=== PATIENT | female | born 1960 | race Caucasian/White ===

== ENCOUNTER → 2017-03-11 | Outpatient (CLI) | payer BC ==
--- NOTE | 2017-03-15 14:55 | MAMMOGRAPHY REPORT ---
THIS REPORT HAS BEEN AMENDED. BILATERAL DIGITAL SCREENING MAMMOGRAM TOMOSYNTHESIS WITH CAD: 03/11/2017 CLINICAL HISTORY: Routine screening. Patient has no complaints. TECHNIQUE: Breast tomosynthesis in addition to standard 2D mammography was performed. Current study was also evaluated with a Computer Aided Detection (CAD) system. COMPARISON: Comparison is made to exams dated: 10/06/2010 mammogram and 05/26/2006 mammogram - [facility]. BREAST COMPOSITION: The tissue of both breasts is heterogeneously dense, which may obscure small mas ses. FINDINGS: There are multiple bilateral circumscribed subcentimeter masses scattered in the breasts, w hich is a typically benign mammographic pattern. No suspicious spiculated or irregular mass, focal a tiffanie of architectural distortion or cluster of suspicious microcalcifications is seen. IMPRESSION: ACR BI-RADS CATEGORY 1: NEGATIVE There is no mammographic evidence of malignancy. A 1 year screening mammogram is recommended. The pa tient will receive written notification of the results. Approximately 10% of breast cancers are not detected with mammography. A negative mammographic report should not delay biopsy if a clinically suggestive mass is present. Neena Walker M.D. ay/:03/15/2017 08:34:13 [employer] Painter Helper: Lulú SIERRA(Anamika)(Batsheva)([place]), [facility] letter sent: Normal 09/28 BI-RADS Code: ACR BI-RADS Category 1: Negative AMENDMENT: 03/24/2017 Neena Walker M.D. Prior outside mammograms dated 02/08/2015, 12/22/2013, 06/12/2013, 04/18/2008 became available for re view. These mammograms appears similar to the ones from our institution dated 10/06/2010 and 006. The current screening exam demonstrates no significant interval change. Therefore recommend fo llow-up in 1 year for next annual screening mammogram. Amended BI-RADS: ACR BI-RADS Category 2: Benign letter sent: Normal 1/2
== END | disposition home or self-care (01) ==
LOC: C.MAMM 13:40
PROVIDERS: ATTEND Family Medicine
DX: Z12.31 Encounter for screening mammogram for malignant neoplasm of breast (principal)

== ENCOUNTER → 2017-09-29 | Outpatient (CLI) | payer OTHER ==
--- NOTE | 2017-09-29 11:50 | DIAGNOSTIC IMAGING REPORT ---
LEFT FEMUR 3 VIEWS CLINICAL HISTORY: Left lower extremity edema. FINDINGS: AP, frog-leg, and lateral views of the left femur are obtained. No prior studies are available for comparison at the time of dictation. The skeletal structures are well mineralized for age. There is no radiographic evidence of left femoral fracture. The hip and knee joints appear maintained. The visualized left hemipelvis is intact. Sclerotic change is partially visualized in the left sacroiliac joint. The overlying soft tissues are within normal limits. IMPRESSION: No acute bony abnormality is identified in the left femur. Electronically signed by: Abdelrahman Moreno M.D. 09/29/2017 11:48 AM Dictated Date/Time: 09/29/2017 11:47 AM
== END | disposition home or self-care (01) ==
LOC: C.RAD1850 11:20
PROVIDERS: ATTEND Family Medicine
DX: M79.89 Other specified soft tissue disorders (principal); G50.0 Trigeminal neuralgia

== ENCOUNTER → 2017-10-07 | Outpatient (CLI) | payer OTHER ==
--- NOTE | 2017-10-07 17:15 | DIAGNOSTIC IMAGING REPORT ---
L EXTREMITY NONVASCULAR LIMITED CLINICAL HISTORY: THIGH SWELLING pain. Edema. TECHNIQUE: Ultrasound COMPARISON STUDY: None FINDINGS: No major collection or mass. Echogenicity of the subcutaneous tissues of the thigh are in general unremarkable. Several sub-1 cm lipoma is potentially are present which most likely are incidental findings. IMPRESSION: No evidence for mass, abscess, or collection. Several very small lipomas felt to be incidental findings. The above report was generated using voice recognition software. It may contain grammatical, syntax or spelling errors. Electronically signed by: David Lakhani M.D. 10/07/2017 5:13 PM Dictated Date/Time: 10/07/2017 5:12 PM
== END | disposition home or self-care (01) ==
LOC: C.ULTR 15:42
PROVIDERS: ATTEND Family Medicine
DX: M79.89 Other specified soft tissue disorders (principal); R20.0 Anesthesia of skin